=== PATIENT | female | born 1935 | race African-American/Black ===

== ENCOUNTER → 2018-08-30 | Outpatient (CLI) | payer MEDICARE, OTHER ==
[~2018-08-30] MED LIST: CLOP75TA33; DONE5TAB33; GABA-529; GABA-531; MED4; METH4TAB17; RAMI5CAP65; REGADENOSON 0.4 MG/5 ML IV ONE; TEMA15CA; TRAM50TA3
== END | disposition home or self-care (01) ==
LOC: CARD 07:57
PROVIDERS: ATTEND Internal Medicine Geriatric Medicine
DX: I10 Essential (primary) hypertension (principal); R94.31 Abnormal electrocardiogram [ECG] [EKG]; E11.9 Type 2 diabetes mellitus without complications
CPT/HCPCS: 78452; 93017; A9500; J2785